=== PATIENT | male | born 1955 | race Caucasian/White ===

== ENCOUNTER 2019-06-29 09:15 | Outpatient (CLI) | payer MEDICARE, SELFPAY ==
[2019-06-29 09:55] LABS: Alanine Aminotransferase 39 U/L (4-50); Albumin Level 4.5 g/dL (3.5-5.1); Alkaline Phosphatase 72 U/L (38-126); Aspartate Amino Transferase 46 U/L (17-59); Bilirubin,Total 0.4 mg/dL (0.2-1.3); Blood Urea Nitrogen 18 mg/dL (9-20); Calcium 9.6 mg/dL (8.4-10.2); Carbon Dioxide 28 mmol/L (22-30); Chloride 101 mmol/L (98-107); Cholesterol 154 mg/dL (0-200); Estimated Glomerular Filt Rate > 60; Glucose 104 mg/dL (75-110); HDL Direct 28 mg/dL; Potassium 3.7 mmol/L (3.4-5.0); Sodium 138 mmol/L (137-145); Triglycerides 133 mg/dL (<150)
[2019-06-29 10:06] LABS: LDL Cholesterol Direct 108 mg/dL
[2019-06-29 10:31] LABS: MALB Creatinine Ratio < 10.2 mg/g (0-30); Microalbumin Urine Random < 6.0 mg/L (0-16.7)
== END 2019-06-29 09:16 | disposition home or self-care (01) ==
PROVIDERS: PCP Internal Medicine; Visit Provider Internal Medicine
DX: E11.9 Type 2 diabetes mellitus without complications (principal); Z51.81 Encounter for therapeutic drug level monitoring; I10 Essential (primary) hypertension; E78.5 Hyperlipidemia, unspecified
CPT/HCPCS: 36415; 80053; 80061; 82043; 83036

== ENCOUNTER 2019-11-23 08:38 | Outpatient (CLI) | payer MEDICARE, SELFPAY ==
[2019-11-23 09:30] LABS: Hemoglobin A1C 6.8 % (<5.7)
[2019-11-23 09:31] LABS: Alanine Aminotransferase 34 U/L (4-50); Albumin Level 4.4 g/dL (3.5-5.1); Alkaline Phosphatase 69 U/L (38-126); Anion Gap 7 mmol/L (8-16); Aspartate Amino Transferase 34 U/L (17-59); Bilirubin,Total 0.7 mg/dL (0.2-1.3); Blood Urea Nitrogen 17 mg/dL (9-20); Calcium 9.9 mg/dL (8.4-10.2); Carbon Dioxide 27 mmol/L (22-30); Chloride 102 mmol/L (98-107); Cholesterol 142 mg/dL (0-200); Estimated Glomerular Filt Rate > 60; Glucose 104 mg/dL (75-110); HDL Direct 33 mg/dL; Potassium 3.9 mmol/L (3.4-5.0); Sodium 136 mmol/L (137-145); Triglycerides 181 mg/dL (<150)
[2019-11-23 09:42] LABS: LDL Cholesterol Direct 86 mg/dL
[2019-11-23 09:43] LABS: Creatinine Urine 46.5 mg/dL
[2019-11-23 09:54] LABS: MALB Creatinine Ratio < 12.9 mg/g (0-30); Microalbumin Urine Random < 6.0 mg/L (0-16.7)
[2019-11-23 10:01] LABS: Prostate Specific Antigen 0.8 ng/mL (< OR = 4.0)
== END 2019-11-23 08:39 | disposition home or self-care (01) ==
LOC: ANHLAB 08:41
PROVIDERS: PCP Internal Medicine; Visit Provider Nurse Practitioner
DX: E11.9 Type 2 diabetes mellitus without complications (principal); Z12.5 Encounter for screening for malignant neoplasm of prostate; E78.2 Mixed hyperlipidemia
CPT/HCPCS: 36415; 80053; 80061; 82043; 83036; 84153; G0103

== ENCOUNTER 2020-01-03 00:37 | Outpatient (CLI) | payer MEDICARE, SELFPAY ==
[2020-01-03 19:58] LABS: SARS-CoV-2 RNA PCR Negative
== END 2020-01-03 00:38 | disposition home or self-care (01) ==
LOC: ANHCOVIDDT 00:37
PROVIDERS: PCP Internal Medicine; Visit Provider Internal Medicine Gastroenterology
DX: Z01.812 Encounter for preprocedural laboratory examination (principal); Z20.828 Contact with and (suspected) exposure to other viral communicable diseases
CPT/HCPCS: 87635; C9803; U0003

== ENCOUNTER 2020-01-05 02:12 | Day surgery (SDC) | payer MEDICARE, SELFPAY ==
[2019-12-31 09:36] VITALS: BMI 33.4
[2020-01-05 12:38] VITALS: BP 135/75; PULSE 86; RESP 18; TEMP 37.1; O2SAT 97; BMI 31.6
--- NOTE | 2020-01-05 12:49 | WPDANESEPPF ---
Anes - Initial Pre Proc Eval Procedure: Operation Date: 01/05/20 14:30 Proposed Procedures p Screening Colonoscopy - Vicente Rodrigues MD Date/Time: 01/05/20 12:49 Surgeon: Vicente Rodrigues MD Pre Op Diagnosis: Neoplasm Screening Patient Data Age: 64 Gender: M Height: 6 ft 1 in Weight: 109 kg Last Vital Signs Temp 37.1 C 01/05/20 12:38 Pulse 86 01/05/20 12:38 Resp 18 01/05/20 12:38 BP 135/75 01/05/20 12:38 Pulse Ox 97 01/05/20 12:38 Allergies Allergy/AdvReac Type Severity Reaction Status Date / Time No Known Allergies Allergy Mild Verified 01/05/20 12:37 Home Medications Medication Instructions Recorded Confirmed Type bupropion HCl 200 mg tablet,12 hr 200 mg PO BID 03/01/19 12/31/19 History sustained-release furosemide 40 mg tablet 40 mg PO QAM 03/01/19 12/31/19 History losartan 50 mg tablet 50 mg PO DAILY 03/01/19 12/31/19 History montelukast 10 mg tablet 10 mg PO DAILY 03/01/19 12/31/19 History blood-glucose meter #1 each 04/12/19 11/29/19 Rx famotidine 20 mg tablet 20 mg PO BID #180 tablet 07/01/19 12/31/19 Rx glipizide 10 mg tablet 10 mg PO BID #180 tablet 07/01/19 12/31/19 Rx metformin 1,000 mg tablet 1,000 mg PO BID #180 tablet 07/01/19 12/31/19 Rx fexofenadine-pseudoephedrine ER 1 tablet PO DAILY #30 tablet 07/22/19 12/31/19 Rx 180 mg-240 mg tablet,ext.release 24 hr blood sugar diagnostic See Rx Instructions .ROUTE 10/18/19 11/29/19 Rx .COMPLEX #100 strip fluticasone propionate 50 See Rx Instructions .ROUTE 10/18/19 12/31/19 Rx mcg/actuation nasal .COMPLEX #16 gram spray,suspension peg 3350-electrolytes 236 240 ml PO Q10M #4000 ml 11/29/19 Rx gram-22.74 gram-6.74 gram-5.86 gram solution tamsulosin 0.4 mg capsule 0.4 mg PO DAILY #30 cap 11/29/19 12/31/19 Rx dapagliflozin 10 mg tablet 10 mg PO QAM #90 tablet 12/13/19 12/31/19 Rx pravastatin 80 mg tablet 80 mg PO DAILY #90 tablet 12/13/19 12/31/19 Rx cetirizine [Zyrtec] 10 mg PO DAILY 12/31/19 12/31/19 History tzjgehymymui-bmo-qinw-FA-vit K 1 tablet PO DAILY 12/31/19 12/31/19 History [Adults Multivitamin] naproxen-diphenhydramine [Aleve PM] 1 tablet PO HS 12/31/19 12/31/19 History omega 0-vll-iaq-fish oil [Fish Oil] 3 cap PO BID 12/31/19 12/31/19 History Patient hx anesthesia problems: none Family hx anesthesia problems: none PMFSH Past Medical History Medical History Essential (primary) hypertension GERD (gastroesophageal reflux disease) Mixed hyperlipidemia ZAKIA (obstructive sleep apnea) Type II diabetes mellitus Surgical History Surgical History H/O cervical spine surgery H/O laminectomy L3-4 Family History Family History Sibling Family history of suicide Social History Social History Smoking packs per day: 1 Smoking cigarettes per day: 20.0 Years smoked: 41 Smoking pack-years: 41.00 Smoking status: Current every day smoker Tobacco type: cigarettes Second hand tobacco smoke exposure: Yes Smoking end date: 03/03/16 Alcohol intake: current Alcohol use details: MAY HAVE 1 OR 2 DRINKS PER MONTH Substance use: never Substance use type: does not use Spiritual care concerns: No Anes - Eval Final PreProcedure Day of Procedure 01/05/20 12:49 Patient weight: obese Heart: regular rate and rhythm Lungs: decreased breath sounds Airway: Mallampati scale class II Neurological: alert and oriented ASA classification: III Emergent: no Anesthetic plan: proceed Anesthesia type and monitoring: general GIVS and standard monitoring Informed Consent: The patient's anesthetic plan and its attendant risks and benefits were discussed with the patient/family/POA. Questions were solicited and answers provided t
[2020-01-05] MEDS: LACTATED RINGERS 1,000 ML 150 ML IV CONT (12:56)
[2020-01-05 12:58] LABS: Glucose Point of Care 103 (65-105)
--- NOTE | 2020-01-05 13:34 | PM.HPGS ---
History of Present Illness History of Present Illness Consent: Risks, benefits, and alternatives have been discussed and questions answered. Patient agrees to proceed with procedure. Chief complaint: Neoplasm Screening Narrative: Aleksandr Yepez Sr. is a 64 year old male here for screening colonoscopy, last one 11 years ago. Review of Systems Constitutional: Constitutional: Denies headache(s) and Denies weakness Eyes: Eyes: Denies blurry vision ENT: Reports Normal hearing present, Denies headache(s) and Denies neck pain Cardiovascular: Cardiovascular: Denies chest pain and Denies dyspnea Respiratory: Respiratory: Denies dyspnea Gastrointestinal: Gastrointestinal: Reports no additional gastrointestinal complaints Genitourinary: Genitourinary: Denies dysuria Musculoskeletal: Musculoskeletal: Denies neck pain Integumentary/Breasts: Skin/Breast: Denies dry skin Neurologic: Reports Normal hearing present, Denies headache(s) and Denies weakness Psychiatric: Psychiatric: Denies anxiety Endocrine: Endocrine: Denies change in body appearance Hematologic/Lymphatic: Hematologic/Lymphatic: Denies easy bleeding Allergic/Immunologic: Allergic/Immunologic: Denies urticaria PMFSH Past Medical History Medical History Essential (primary) hypertension GERD (gastroesophageal reflux disease) Mixed hyperlipidemia ZAKIA (obstructive sleep apnea) Type II diabetes mellitus Surgical History Surgical History H/O cervical spine surgery H/O laminectomy L3-4 Family History Family History Sibling Family history of suicide Social History Social History Smoking packs per day: 1 Smoking cigarettes per day: 20.0 Years smoked: 41 Smoking pack-years: 41.00 Smoking status: Current every day smoker Tobacco type: cigarettes Second hand tobacco smoke exposure: Yes Smoking end date: 03/03/16 Alcohol intake: current Alcohol use details: MAY HAVE 1 OR 2 DRINKS PER MONTH Substance use: never Substance use type: does not use Spiritual care concerns: No Meds Home Medications and Allergies Home Medications Medication Instructions Recorded Confirmed Type bupropion HCl 200 mg tablet,12 hr 200 mg PO BID 03/01/19 01/05/20 History sustained-release furosemide 40 mg tablet 40 mg PO QAM 03/01/19 01/05/20 History losartan 50 mg tablet 50 mg PO DAILY 03/01/19 01/05/20 History montelukast 10 mg tablet 10 mg PO DAILY 03/01/19 01/05/20 History blood-glucose meter #1 each 04/12/19 01/05/20 Rx famotidine 20 mg tablet 20 mg PO BID #180 tablet 07/01/19 01/05/20 Rx glipizide 10 mg tablet 10 mg PO BID #180 tablet 07/01/19 01/05/20 Rx metformin 1,000 mg tablet 1,000 mg PO BID #180 tablet 07/01/19 01/05/20 Rx fexofenadine-pseudoephedrine ER 1 tablet PO DAILY #30 tablet 07/22/19 01/05/20 Rx 180 mg-240 mg tablet,ext.release 24 hr blood sugar diagnostic See Rx Instructions .ROUTE 10/18/19 01/05/20 Rx .COMPLEX #100 strip fluticasone propionate 50 See Rx Instructions .ROUTE 10/18/19 01/05/20 Rx mcg/actuation nasal .COMPLEX #16 gram spray,suspension peg 3350-electrolytes 236 240 ml PO Q10M #4000 ml 11/29/19 01/05/20 Rx gram-22.74 gram-6.74 gram-5.86 gram solution tamsulosin 0.4 mg capsule 0.4 mg PO DAILY #30 cap 11/29/19 01/05/20 Rx dapagliflozin 10 mg tablet 10 mg PO QAM #90 tablet 12/13/19 01/05/20 Rx pravastatin 80 mg tablet 80 mg PO DAILY #90 tablet 12/13/19 01/05/20 Rx cetirizine [Zyrtec] 10 mg PO DAILY 12/31/19 01/05/20 History kiaiuwegknrk-zkr-rlom-FA-vit K 1 tablet PO DAILY 12/31/19 01/05/20 History [Adults Multivitamin] naproxen-diphenhydramine [Aleve PM] 1 tablet PO HS 12/31/19 01/05/20 History omega 8-bff-pdn-fish oil [Fish Oil] 3 cap PO BID 12/31/19
[2020-01-05 14:03] VITALS: BP 113/71; PULSE 80; RESP 23; O2SAT 96
[2020-01-05 14:13] VITALS: BP 128/81; PULSE 82; RESP 16; O2SAT 98
[2020-01-05 14:23] VITALS: BP 115/75; PULSE 76; RESP 19; O2SAT 100
== END 2020-01-05 14:31 | disposition home or self-care (01) ==
PROVIDERS: PCP Internal Medicine; Visit Provider Internal Medicine Gastroenterology
PROC: 0DJD8ZZ Inspection of Lower Intestinal Tract, Via Natural or Artificial Opening Endoscopic (ICD-10-PCS; CPT 45378; principal; 2020-01-05 14:30)
DX: Z12.11 Encounter for screening for malignant neoplasm of colon (principal); I10 Essential (primary) hypertension; E78.2 Mixed hyperlipidemia; E11.9 Type 2 diabetes mellitus without complications; K21.9 Gastro-esophageal reflux disease without esophagitis; Z79.84 Long term (current) use of oral hypoglycemic drugs; F17.210 Nicotine dependence, cigarettes, uncomplicated; E66.9 Obesity, unspecified; Z68.31 Body mass index [BMI] 31.0-31.9, adult
CPT/HCPCS: 45378; J2704; J7120

== ENCOUNTER 2020-05-22 07:23 | Outpatient (CLI) | payer MEDICARE, SELFPAY ==
[2020-05-22 07:47] LABS: Hemoglobin A1C 8.3 % (<5.7)
[2020-05-22 07:52] LABS: Alanine Aminotransferase 32 U/L (4-50); Albumin Level 4.2 g/dL (3.5-5.1); Alkaline Phosphatase 62 U/L (38-126); Anion Gap 8 mmol/L (8-16); Aspartate Amino Transferase 32 U/L (17-59); Bilirubin,Total 0.4 mg/dL (0.2-1.3); Blood Urea Nitrogen 15 mg/dL (9-20); Calcium 9.1 mg/dL (8.4-10.2); Carbon Dioxide 26 mmol/L (22-30); Chloride 104 mmol/L (98-107); Cholesterol 151 mg/dL (0-200); Estimated Glomerular Filt Rate > 60; Glucose 158 mg/dL (75-110); HDL Direct 36 mg/dL; Potassium 4.1 mmol/L (3.4-5.0); Sodium 138 mmol/L (137-145); Triglycerides 178 mg/dL (<150)
[2020-05-22 08:03] LABS: LDL Cholesterol Direct 91 mg/dL
[2020-05-22 10:44] LABS: Creatinine Urine 91.4 mg/dL
[2020-05-22 10:49] LABS: MALB Creatinine Ratio 8.5 mg/g (0-30); Microalbumin Urine Random 7.8 mg/L (0-16.7)
== END 2020-05-22 07:24 | disposition home or self-care (01) ==
PROVIDERS: PCP Internal Medicine; Visit Provider Internal Medicine
DX: E11.9 Type 2 diabetes mellitus without complications (principal); I10 Essential (primary) hypertension; E78.5 Hyperlipidemia, unspecified
CPT/HCPCS: 36415; 80053; 80061; 82043; 83036

== ENCOUNTER 2020-08-26 08:45 | Outpatient (CLI) | payer MEDICARE, SELFPAY ==
[2020-08-26 09:13] LABS: Alanine Aminotransferase 31 U/L (4-50); Albumin Level 4.5 g/dL (3.5-5.1); Alkaline Phosphatase 69 U/L (38-126); Anion Gap 10 mmol/L (8-16); Aspartate Amino Transferase 29 U/L (17-59); Bilirubin,Total 0.5 mg/dL (0.2-1.3); Blood Urea Nitrogen 18 mg/dL (9-20); Calcium 9.7 mg/dL (8.4-10.2); Carbon Dioxide 25 mmol/L (22-30); Chloride 101 mmol/L (98-107); Estimated Glomerular Filt Rate > 60; Glucose 154 mg/dL (75-110); Potassium 4.1 mmol/L (3.4-5.0); Sodium 136 mmol/L (137-145)
[2020-08-26 09:24] LABS: Hemoglobin A1C 7.3 % (<5.7)
== END 2020-08-26 08:46 | disposition home or self-care (01) ==
PROVIDERS: PCP Internal Medicine; Visit Provider Nurse Practitioner
DX: E11.9 Type 2 diabetes mellitus without complications (principal)
CPT/HCPCS: 36415; 80053; 83036

== ENCOUNTER 2020-10-31 09:42 | Outpatient (CLI) | payer MEDICARE, SELFPAY ==
--- NOTE | ~2020-10-31 | CT_ITS ---
EXAMINATION: CT lung screening DATE: 10/31/2020 09:57 INDICATION: Personal history of tobacco dependence, current smoker with 42 pack year history TECHNIQUE: Computed tomography (CT) of the chest was performed without intravenous contrast. The dose -length product (DLP) was 297.34 mGy-cm. Automated exposure control and iterative reconstruction tech [employer] were employed. COMPARISON: None FINDINGS: There is mild emphysema. No pulmonary nodules are identified. The lungs are free of acute o pacities. There is no pleural effusion or pneumothorax. Fissural lymph nodes are noted on the right. No pathologically enlarged thoracic lymph nodes are identified. The heart size is normal. Calcified c oronary artery atherosclerosis is noted. There are partially imaged changes of posterior thoracolumba r fusion. Moderate thoracic spondylosis is noted. IMPRESSION: 1. Lung-RADS category 1: Negative. Continue annual screening with noncontrast low-dose chest CT in 12 months. Reviewed, dictated and finalized at location A. IMPRESSION: 1. Lung-RADS category 1: Negative. Continue annual screening with noncontrast l ow-dose chest CT in 12 months.
== END 2020-10-31 09:43 | disposition home or self-care (01) ==
PROVIDERS: PCP Internal Medicine; Visit Provider Internal Medicine
DX: Z12.2 Encounter for screening for malignant neoplasm of respiratory organs (principal); Z87.891 Personal history of nicotine dependence
CPT/HCPCS: 71271

== ENCOUNTER 2020-12-10 19:03 | Emergency (ER) | payer MEDICARE, SELFPAY ==
--- NOTE | ~2020-12-10 | XR_ITS ---
EXAMINATION: XR chest 1V portable DATE: 12/10/2020 19:54 INDICATION: Cough, fever and shortness of breath TECHNIQUE: frontal view of the chest was obtained. COMPARISON: CT dated 10/31/2020 FINDINGS: New mild patchy airspace opacities in the left mid and bilateral lower lung zones. No pleural effusio n or pneumothorax. The cardiomediastinal silhouette is normal. Likely wire and screws project over th e right side of the C7 vertebral body potentially for fixation across the lamina. Thoracolumbar poste rior spinal fusion with incompletely visualized bilateral vertical shannon and screw fixation. IMPRESSION: 1. Patchy opacities in the left mid and bilateral lower lung zones which could represent pneumonia or pulmonary edema. Reviewed, dictated and finalized at location A.
[2020-12-10 19:10] VITALS: BP 158/69; PULSE 106; RESP 18; TEMP 37; O2SAT 98
--- NOTE | 2020-12-10 20:25 | ED.GENADULT ---
HPI - General Adult General Chief complaint: Fever Stated complaint: fever, chills, achey, cough Time Seen by Provider: 12/10/20 19:31 History of Present Illness HPI narrative: Patient is a 65-year-old gentleman who presents the emergency department with chief complaint of fever body aches and chills. Patient reports that he started having symptoms in the last 24 hours reports that he was at a family gathering and then started having a cough with this. Patient states he is taken some Tylenol and that helped a little bit the patient reports he received the [employer] vaccine for COVID-19. Patient reports symptoms or not improved by anything nor they worsened by anything. Related Data Home Medications Medication Instructions Recorded Confirmed gqcjrtcvvpib-bpu-jxie-FA-vit K 1 tablet PO DAILY 12/31/19 10/26/20 [Adults Multivitamin] naproxen-diphenhydramine [Aleve PM] 1 tablet PO HS 12/31/19 10/26/20 omega 3-csb-zbr-fish oil [Fish Oil] 3 cap PO BID 12/31/19 10/26/20 simethicone 125 mg capsule 125 mg PO DAILY PRN 10/26/20 10/26/20 Allergies Allergy/AdvReac Type Severity Reaction Status Date / Time No Known Allergies Allergy Mild Verified 12/10/20 19:39 Review of Systems Review of Systems: A 10 system review of systems was completed on the patient and is negative except for what is stated in the HPI. Nursing and ancillary documentation was reviewed. [facility] Past Medical History Medical History Colon cancer screening Essential (primary) hypertension GERD (gastroesophageal reflux disease) Mixed hyperlipidemia ZAKIA (obstructive sleep apnea) Type II diabetes mellitus Surgical History Surgical History H/O cervical spine surgery H/O laminectomy L3-4 Family History Family History Sibling Family history of suicide Social History Social History Smoking packs per day: 1 Smoking cigarettes per day: 20.0 Years smoked: 42 Smoking pack-years: 42.00 Smoking status: Current every day smoker Tobacco type: cigarettes Second hand tobacco smoke exposure: No Alcohol intake: current Alcohol use details: Social Substance use: never Substance use type: does not use Spiritual care concerns: No Exam Narrative: GENERAL: Well-appearing, well-nourished, and in no acute distress. HEAD: Normocephalic, atraumatic. EYES: PERRLA and EOMI. ENT: Nares clear, no rhinorrhea or epistaxis. Mucous membranes moist. NECK: Supple. CHEST: Clear to auscultation. No respiratory distress. HEART: Regular rate and rhythm. No murmur heard. Normal peripheral pulses. ABDOMEN: Soft, nontender, nondistended, normal active bowel sounds. EXTREMITIES: Normal range of motion. No edema. SKIN: Warm, dry, no rash. NEURO: No focal deficits. Alert and oriented x3. PSYCH: Normal mood and affect. Course Vital Signs Vital signs: Vital Signs Temperature 37.0 C 12/10/20 19:10 Pulse Rate 106 H 12/10/20 19:10 Respiratory Rate 18 12/10/20 19:10 Blood Pressure 158/69 H 12/10/20 19:10 Pulse Oximetry 98 12/10/20 19:10 Temperature 37.0 C 12/10/20 19:10 Pulse Rate 106 H 12/10/20 19:10 Respiratory Rate 18 12/10/20 19:10 Blood Pressure 158/69 H 12/10/20 19:10 Pulse Oximetry 98 12/10/20 19:10 Medical Decision Making Vital Signs Vital Signs: Vital Signs Temperature 37.0 C 12/10/20 19:10 Pulse Rate 106 H 12/10/20 19:10 Respiratory Rate 18 12/10/20 19:10 Blood Pressure 158/69 H 12/10/20 19:10 Pulse Oximetry 98 12/10/20 19:10 Temperature 37.0 C 12/10/20 19:10 Pulse Rate 106 H 12/10/20 19:10 Respiratory Rate 18 12/10/20 19:10 Blood Pressure 158/69 H 12/10/20 19:10 Pulse Oximetry 98 12/10/20 19:10 Dis
[2020-12-10 20:42] VITALS: BP 133/67; PULSE 104; RESP 20; O2SAT 94
[2020-12-10] MEDS: CEFDINIR 300 MG CAPSULE PO (20:44)
[2020-12-10] MEDS: AZITHROMYCIN 250 MG TABLET 500 MG PO (20:44)
[2020-12-11 20:20] LABS: SARS-CoV-2 RNA PCR Negative
== END 2020-12-10 20:40 | disposition home or self-care (01) ==
PROVIDERS: Emergency Provider Emergency Medicine; PCP Internal Medicine
DX: J18.9 Pneumonia, unspecified organism (principal); Z20.822 Contact with and (suspected) exposure to COVID-19; I10 Essential (primary) hypertension; K21.9 Gastro-esophageal reflux disease without esophagitis; E78.2 Mixed hyperlipidemia; G47.33 Obstructive sleep apnea (adult) (pediatric); E11.9 Type 2 diabetes mellitus without complications; F17.210 Nicotine dependence, cigarettes, uncomplicated; Z79.84 Long term (current) use of oral hypoglycemic drugs
CPT/HCPCS: 71045; 87804; 99283; A9270; C9803; U0003; U0005

== ENCOUNTER 2020-12-23 09:55 | Outpatient (CLI) | payer MEDICARE, SELFPAY ==
[2020-12-23 11:27] LABS: Hemoglobin A1C 7.4 % (<5.7)
[2020-12-23 11:33] LABS: Alanine Aminotransferase 35 U/L (4-50); Albumin Level 4.1 g/dL (3.5-5.1); Alkaline Phosphatase 65 U/L (38-126); Anion Gap 9 mmol/L (8-16); Aspartate Amino Transferase 31 U/L (17-59); Bilirubin,Total 0.6 mg/dL (0.2-1.3); Blood Urea Nitrogen 20 mg/dL (9-20); Calcium 9.6 mg/dL (8.4-10.2); Carbon Dioxide 25 mmol/L (22-30); Chloride 105 mmol/L (98-107); Cholesterol 134 mg/dL (0-200); Estimated Glomerular Filt Rate > 60; Glucose 155 mg/dL (65-110); HDL Direct 34 mg/dL; Potassium 4.4 mmol/L (3.4-5.0); Sodium 139 mmol/L (137-145); Triglycerides 110 mg/dL (<150)
[2020-12-23 11:44] LABS: LDL Cholesterol Direct 79 mg/dL
== END 2020-12-23 09:56 | disposition home or self-care (01) ==
LOC: ANHLAB 09:56
PROVIDERS: PCP Internal Medicine; Visit Provider Nurse Practitioner
DX: E11.9 Type 2 diabetes mellitus without complications (principal)
CPT/HCPCS: 36415; 80053; 80061; 83036

== ENCOUNTER 2021-08-04 09:30 | Outpatient (CLI) | payer MEDICARE, SELFPAY ==
[2021-08-04 10:02] LABS: Alanine Aminotransferase 32 U/L (6-50); Albumin Level 4.3 g/dL (3.5-5.1); Alkaline Phosphatase 51 U/L (38-126); Anion Gap 8 mmol/L (8-16); Aspartate Amino Transferase 45 U/L (17-59); Bilirubin,Total 0.9 mg/dL (0.2-1.3); Blood Urea Nitrogen 15 mg/dL (9-20); Calcium 8.4 mg/dL (8.4-10.2); Carbon Dioxide 21 mmol/L (22-30); Chloride 106 mmol/L (98-107); Cholesterol 137 mg/dL (0-200); Estimated Glomerular Filt Rate > 60; Glucose 171 mg/dL (65-110); HDL Direct 33 mg/dL; Potassium 4.6 mmol/L (3.4-5.0); Sodium 135 mmol/L (137-145); Triglycerides 144 mg/dL (<150)
[2021-08-04 10:03] LABS: Hemoglobin A1C 7.6 % (<5.7)
[2021-08-04 10:12] LABS: LDL Cholesterol Direct 79 mg/dL
[2021-08-04 10:31] LABS: Prostate Specific Antigen 0.9 ng/mL (< OR = 4.0)
== END 2021-08-04 09:31 | disposition home or self-care (01) ==
LOC: ANHLAB 09:31
PROVIDERS: PCP Internal Medicine; Visit Provider Nurse Practitioner
DX: Z12.5 Encounter for screening for malignant neoplasm of prostate (principal); E11.9 Type 2 diabetes mellitus without complications; E78.5 Hyperlipidemia, unspecified
CPT/HCPCS: 36415; 80053; 80061; 83036; 84153; G0103

== ENCOUNTER 2022-03-06 10:23 | Outpatient (CLI) | payer MEDICARE, SELFPAY ==
[2022-03-06 11:14] LABS: Hemoglobin A1C 8.8 % (<5.7)
[2022-03-06 11:15] LABS: Alanine Aminotransferase 33 U/L (6-50); Albumin Level 4.4 g/dL (3.5-5.1); Alkaline Phosphatase 90 U/L (38-126); Anion Gap 6 mmol/L (8-16); Aspartate Amino Transferase 27 U/L (17-59); Bilirubin,Total 0.5 mg/dL (0.2-1.3); Blood Urea Nitrogen 15 mg/dL (9-20); Carbon Dioxide 29 mmol/L (22-30); Chloride 97 mmol/L (98-107); Estimated Glomerular Filt Rate > 60; Glucose 215 mg/dL (65-110); Potassium 4.1 mmol/L (3.4-5.0); Sodium 132 mmol/L (137-145)
[2022-03-06 11:42] LABS: Creatinine Urine 119.9 mg/dL
[2022-03-06 11:48] LABS: MALB Creatinine Ratio 8.8 mg/g (0-30); Microalbumin Urine Random 10.6 mg/L (0-16.7)
== END 2022-03-06 10:24 | disposition home or self-care (01) ==
PROVIDERS: PCP Internal Medicine; Visit Provider Nurse Practitioner
DX: E11.9 Type 2 diabetes mellitus without complications (principal)
CPT/HCPCS: 36415; 80053; 82043; 83036

== ENCOUNTER 2022-05-14 11:00 | Outpatient (CLI) | payer MEDICARE, SELFPAY ==
--- NOTE | ~2022-05-14 | CT_ITS ---
EXAMINATION: CT lung screening DATE: 05/14/2022 11:17 INDICATION: Lung cancer screening TECHNIQUE: Computed tomography (CT) of the chest was performed without intravenous contrast. Addition al 3D reconstructions utilizing coronal maximum intensity projection (MIP) were performed. Automated exposure control and iterative reconstruction technique were employed. The dose-length product was 26 0.04 mGy-cm. COMPARISON: 10/31/2020 FINDINGS: Small calcified right middle lobe nodule consistent with old granulomatous disease. There are a few s mall flat lenticular or triangular likely intrafissural lymph node along the right major and minor fi ssures, largest measuring 5 mm in maximal diameter. No significant change in scattered subtle groundg lass opacities in the bilateral lower lungs most likely either atelectasis or chronic interstitial jacinto ng disease. No septal line thickening to suggest pulmonary edema. No other pulmonary nodules or pleur al effusion. Heart size is normal. Atherosclerotic coronary artery calcific lesions. No pericardial e ffusion. Thoracic aorta is normal in caliber. No pathologically enlarged thoracic lymphadenopathy. Vi sualized upper abdomen is unremarkable. There are bridging osteophytes at multiple levels in the thor acic spine consistent with diffuse idiopathic skeletal hyperostosis (DISH). Partially visualized inst rumented posterior spinal fusion with bilateral vertical shannon and pedicle screw fixation beginning at T10 and extending below the inferior margin of the peodf-nc-rpam, at least to the level of L3 on the seamer topogram. IMPRESSION: 1. Lung-RADS category 2: Benign appearance or behavior. Continue annual screening with noncontrast lo w-dose chest CT in 12 months. Reviewed, dictated and finalized at location L. IMPRESSION: 1. Lung-RADS category 2: Benign appearance or behavior. Continue annual screeni ng with noncontrast low-dose chest CT in 12 months.
== END 2022-05-14 11:01 | disposition home or self-care (01) ==
LOC: ANHIMG 11:02
PROVIDERS: PCP Internal Medicine; Visit Provider Physician Assistant
DX: Z12.2 Encounter for screening for malignant neoplasm of respiratory organs (principal); Z87.891 Personal history of nicotine dependence
CPT/HCPCS: 71271

== ENCOUNTER 2022-06-06 11:00 | Outpatient (RCR) | payer MEDICARE, SELFPAY ==
[2022-06-06 11:13] VITALS: BMI 32.5
[2022-06-06 13:24] VITALS: BMI 32.5
== END 2022-08-12 08:55 | disposition home or self-care (01) ==
LOC: ANHDMC 11:00
PROVIDERS: PCP Internal Medicine; Visit Provider Nurse Practitioner Family
DX: E11.65 Type 2 diabetes mellitus with hyperglycemia (principal); Z71.89 Other specified counseling; Z71.3 Dietary counseling and surveillance
CPT/HCPCS: 97802; G0108

== ENCOUNTER 2022-06-07 08:15 | Outpatient (CLI) | payer MEDICARE, SELFPAY ==
[2022-06-07 08:58] LABS: Alanine Aminotransferase 37 U/L (6-50); Albumin Level 4.7 g/dL (3.5-5.1); Alkaline Phosphatase 54 U/L (38-126); Anion Gap 8 mmol/L (8-16); Aspartate Amino Transferase 35 U/L (17-59); Bilirubin,Total 0.8 mg/dL (0.2-1.3); Blood Urea Nitrogen 18 mg/dL (9-20); Calcium 9.2 mg/dL (8.4-10.2); Carbon Dioxide 29 mmol/L (22-30); Chloride 100 mmol/L (98-107); Cholesterol 127 mg/dL (0-200); Estimated Glomerular Filt Rate > 60; Glucose 138 mg/dL (65-110); HDL Direct 30 mg/dL; Potassium 4.5 mmol/L (3.4-5.0); Sodium 137 mmol/L (137-145); Triglycerides 114 mg/dL (<150)
[2022-06-07 09:00] LABS: Hemoglobin A1C 7.9 % (<5.7)
[2022-06-07 09:07] LABS: LDL Cholesterol Direct 73 mg/dL
[2022-06-07 10:37] LABS: Creatinine Urine 55.9 mg/dL
[2022-06-07 10:43] LABS: MALB Creatinine Ratio < 10.7 mg/g (0-30); Microalbumin Urine Random < 6.0 mg/L (0-16.7)
== END 2022-06-07 08:16 | disposition home or self-care (01) ==
PROVIDERS: PCP Internal Medicine; Visit Provider Nurse Practitioner Family
DX: Z51.81 Encounter for therapeutic drug level monitoring (principal); I10 Essential (primary) hypertension; E11.9 Type 2 diabetes mellitus without complications
CPT/HCPCS: 36415; 80053; 80061; 82043; 83036

== ENCOUNTER 2022-10-11 08:25 | Outpatient (CLI) | payer MEDICARE, SELFPAY ==
[2022-10-11 10:34] LABS: Hemoglobin A1C 5.6 % (<5.7)
== END 2022-10-11 08:26 | disposition home or self-care (01) ==
PROVIDERS: PCP Family Medicine; Visit Provider Internal Medicine
DX: E11.9 Type 2 diabetes mellitus without complications (principal)
CPT/HCPCS: 36415; 83036

== ENCOUNTER 2024-08-26 09:07 | Outpatient (CLI) | payer MEDICARE, SELFPAY ==
[2024-08-26 09:39] LABS: Basophils Percent Auto 0.6 % (0.2-1.2); Eosinophils Absolute Auto 0.2 K/mm3 (0-0.3); Eosinophils Percent Auto 3.3 % (0-4.4); Hematocrit 41.7 % (42.0-52.0); Immature Granulocyte Absolute 0.02 K/mm3 (0.00-0.031); Immature Granulocyte Percent A 0.3 % (0-0.5); Lymphocytes Absolute Auto 2.83 K/mm3 (0.9-3.2); Mean Corpuscular HGB Conc 33.6 g/dl (32-36); Mean Corpuscular Hemoglobin 33.6 pg (26-34); Mean Platelet Volume 10.4 fl (7.4-10.4); Monocytes Absolute Auto 0.7 K/mm3 (0.1-0.6); Monocytes Percent Auto 9.7 % (2.6-8.5); Neutrophils Absolute Auto 3.4 K/mm3 (1.3-6.7); Neutrophils Percent Auto 47.1 % (45.5-73.1); Platelet Count Result 198 k/mm3 (150-375); Red Blood Count 4.17 M/mm3 (4.6-6.20); Red Cell Distribution Width 12.8 % (11.5-14.5); White Blood Count 7.3 K/mm3 (4.5-10.0)
[2024-08-26 09:52] LABS: Alanine Aminotransferase 30 U/L (6-50); Albumin Level 4.2 g/dL (3.5-5.1); Alkaline Phosphatase 56 U/L (38-126); Anion Gap 11 mmol/L (4-12); Aspartate Amino Transferase 31 U/L (17-59); Bilirubin,Total 0.4 mg/dL (0.2-1.3); Blood Urea Nitrogen 19 mg/dL (9-20); Calcium 9.2 mg/dL (8.4-10.2); Carbon Dioxide 23 mmol/L (22-30); Chloride 103 mmol/L (98-107); Cholesterol 126 mg/dL (0-200); Estimated Glomerular Filt Rate > 60; Glucose 119 mg/dL (65-110); HDL Direct 33 mg/dL; Potassium 4.1 mmol/L (3.4-5.0); Sodium 137 mmol/L (137-145); Total Protein 6.9 g/dL (6.3-8.2); Triglycerides 139 mg/dL (<150)
[2024-08-26 10:02] LABS: LDL Cholesterol Direct 64 mg/dL
[2024-08-26 10:06] LABS: Creatinine Urine 221.5 mg/dL
[2024-08-26 10:11] LABS: MALB Creatinine Ratio 9.3 mg/g (0-30); Microalbumin Urine Random 20.7 mg/L (0-16.7)
[2024-08-26 10:34] LABS: Vitamin D 25 Hydroxy 47.7 ng/mL
[2024-08-26 11:00] LABS: Hemoglobin A1C 6.5 % (<5.7)
== END 2024-08-26 09:08 | disposition home or self-care (01) ==
PROVIDERS: PCP Internal Medicine; Visit Provider Internal Medicine
DX: E11.9 Type 2 diabetes mellitus without complications (principal); E78.5 Hyperlipidemia, unspecified; Z79.891 Long term (current) use of opiate analgesic
CPT/HCPCS: 36415; 80053; 80061; 82043; 82306; 83036; 85025

== ENCOUNTER 2024-10-26 16:10 | Outpatient (CLI) | payer MEDICARE, SELFPAY ==
--- NOTE | ~2024-10-26 | US_ITS ---
EXAMINATION: US carotid duplex BI DATE: 10/26/2024 16:46 INDICATION: Carotid stenosis TECHNIQUE: Grayscale, color Doppler, and pulsed Doppler images of the cervical carotid arteries were obtained. The degree of vessel stenosis is placed in one of the following categories: normal, <50%, 50-69%, >=70% but less than near- occlusion, near-occlusion, or total occlusion. Note that percent stenosis relative to normal distal artery lumen diameter is indirectly measured from velocity measurements as described by Leonel, et al. Radiology 2003; 229:340-346. Notes: Normal: Peak systolic velocity <125 centimeters/sec and no plaque <50%. Peak systolic velocity <125 (EDV <40; ICA/CCA PSV ratio <2.0; used these factors only a tandem lesions or low cardiac output or contralateral disease) 50-69 %: PSV 125-230 (EDV 40-100; ratio 2-4) >= 70% but less than near occlusion: PSV greater than 230 (EDV > 100; ratio> 4.0) Near Occlusion: PSV that is variable; markedly narrowed lumen Occlusion: Absent flow on color/spectral Doppler and no lumen on hernandez scale. COMPARISON: None. FINDINGS: RIGHT: The right common carotid artery (CCA) peak systolic velocity (PSV) is 94 cm/s. The right internal carotid artery (ICA) PSV is 82 cm/s. The right ICA end- diastolic velocity (EDV) is 28 cm/s. The right ICA/CCA PSV ratio is 0.9. The external carotid artery (ECA) PSV is 147 cm/s. There is antegrade flow in the right vertebral artery. LEFT: The left CCA PSV is 117 cm/s. The left ICA PSV is 98 cm/s. The left ICA EDV is 18 cm/s. The left ICA/CCA PSV ratio is 0.8. The ECA PSV is 134 cm/s. There is antegrade flow in the left vertebral artery. IMPRESSION: 1. Less than 50% stenosis in the right internal carotid artery by sonographic criteria. 2. Less than 50% stenosis in the left internal carotid artery by sonographic criteria. Reviewed, dictated and finalized at location O. IMPRESSION: 1. Less than 50% stenosis in the right internal carotid artery by sonographic jan urias. 2. Less than 50% stenosis in the left internal carotid artery by sonographic justina campos.
--- OUTSIDE RECORDS SUMMARY | 2024-10-26 16:14 | XMS_ITS | Encounter Summary ---
Author Organization [employer] [facility] Address [address] [place] [address] Care Team Providers Care Registered Nurse Cardiac Telemetry Name Role Phone Unavailable Primary Care Provider Unavailabl e Encounter Details Date Type Department Care Team (Latest Contact Info) Description 05/21/2001 Outpatient [facility] [address] [place] [address] & [place] [address] Amirah Oliver MD NO ADDRESS ON FILE LUMBAGO (Primary Dx) Social History Tobacco Use Types Packs/Day Years Used Date Smoking Tobacco: Never Assessed Sex and Gender Information Value Date Recorded Sex Assigned at Not on file 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
--- OUTSIDE RECORDS SUMMARY | 2024-10-26 16:14 | XMS_ITS | Encounter Summary ---
Author Organization [employer] [facility] Address 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
--- OUTSIDE RECORDS SUMMARY | 2024-10-26 16:14 | XMS_ITS | Encounter Summary ---
Author Organization [employer] [facility] Address 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
--- OUTSIDE RECORDS SUMMARY | 2024-10-26 16:15 | XMS_ITS | Encounter Summary ---
Author Organization [employer] [facility] Address 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
--- OUTSIDE RECORDS SUMMARY | 2024-10-26 16:15 | XMS_ITS | Encounter Summary ---
Author Organization [employer] [facility] Address 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
--- OUTSIDE RECORDS SUMMARY | 2024-10-26 16:15 | XMS_ITS | Encounter Summary ---
Author Organization [employer] [facility] Address 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
--- OUTSIDE RECORDS SUMMARY | 2024-10-26 16:15 | XMS_ITS | Encounter Summary ---
Author Organization [employer] [facility] Address 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
--- OUTSIDE RECORDS SUMMARY | 2024-10-26 16:15 | XMS_ITS | Encounter Summary ---
Author Organization [employer] [facility] Address 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
--- OUTSIDE RECORDS SUMMARY | 2024-10-26 16:15 | XMS_ITS | Encounter Summary ---
Author Organization [employer] [facility] Address 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
--- OUTSIDE RECORDS SUMMARY | 2024-10-26 16:15 | XMS_ITS | Clinical Summary ---
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
--- OUTSIDE RECORDS SUMMARY | 2024-10-26 16:15 | XMS_ITS | Clinical Summary ---
Author Organization [facility] Address [address] [place] [address] Care Team Providers Care Salon/Spa Manager Name Role Phone Shivani Wyatt MD Primary Care Provider [phone] Source Comments [facility],non-owned Affiliates and Associated Physician Practices is amultiple site organization consisting of ambulatory clinics and hospital sitesin [place], [place], [place] and [place]. This disclosure is being madepursuant to the Care Everywhere program and may not contain all information available regarding this patient. Last updated 17.[facility] Allergies No known active allergies Medications * Be aware that medications may not be up to date on this document. Alwaysverify current medications with the patient. baclofen (LIORESAL) 10 MG tablet Take 10 mg by mouth 4 times daily 1 02/10/2015 Active buPROPion SR 12hr (WELLBUTRIN SR) 200 MG tablet Take 200 mg by mouth 2 times daily 3 03/09/2015 Active DULoxetine (CYMBALTA) 30 MG capsule Take 30 mg by mouth once daily 04/07/2015 Active fentaNYL (DURAGESIC) 100 MCG/HR patch Apply 1 Patch to skin every 3 days 03/15/2015 Active fluticasone propionate (FLONASE) 50 MCG/ACT nasal spray [place] 2 Sprays into each nostril at bedtime 3 03/20/2015 Active furosemide (LASIX) 40 MG tablet Take 40 mg by mouth once daily 2 03/20/2015 Active gabapentin (NEURONTIN) 600 MG tablet Take 600 mg by mouth 4 times daily 04/07/2015 Active lisinopril (PRINIVIL; ZESTRIL) 10 MG tablet Take 10 mg by mouth once daily 3 03/20/2015 Active lovastatin (MEVACOR) 40 MG tablet Take 40 mg by mouth at bedtime 3 03/20/2015 Active metFORMIN (GLUCOPHAGE) 1000 MG tablet Take 1,000 mg by mouth 2 times daily with morning and evening meal 04/05/2015 Active sennosides (SENOKOT) 8.6 MG tablet Take 8.6 mg by mouth at bedtime Active docusate sodium (COLACE) 50 MG capsule Take 50 mg by mouth once daily Active ranitidine (ZANTAC) 150 MG tablet Take 150 mg by mouth 2 times daily Active Fexofenadine-Ps eudoephedrine (MICHAEL-D 24 HOUR PO) Take 1 Tab by mouth at bedtime Active [place]-3 Fatty Acids (FISH OIL) 1000 MG capsule Take 3,000 mg by mouth 2 times daily Active Multiple Vitamin (MULTI VITAMIN DAILY) TABS Take 1 Tab by mouth once daily Active Active Problems Problem Noted Date Diagnosed Date Postoperative wound infection 09/17/2015 Lumbar stenosis 08/22/2015 Status post lumbar spinal fusion 08/22/2015 Mixed hyperlipidemia 08/22/2015 Essential hypertension 08/22/2015 Smoker Smoker Overview (09/17/2015): <1pk day, 40 years Family History Relation Name Status Comments Other Social History Tobacco Use Types Packs/Day Years Used Date Smoking Tobacco: Every Day Cigarettes 0.5 40 Smokeless Tobacco: Never Tobacco Cessation:Ready to Q uit: No; Counseling Given: Yes Alcohol Use Standard Drinks/Week Comments Yes 1 (1 standard drink = 0.6 oz pur e alcohol) 1 beer a week Sex and Gender Information Value Date Recorded Sex Assigned at Not on file 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 Gender Identity Not on file Sexual Orientation Not on file Last Filed Vital Signs Vital Sign Reading Time Taken Comments Blood Pressure 136/82 07/19/2016 4:26 PM CDT Pulse 86 07/19/2016 4:26 PM CDT Temperature 36.7 C (98 F) 07/19/2016 4:26 PM CDT Respiratory Rate 18 07/19/2016 4:26 PM CDT Oxygen Saturation 97% 07/19/2016 4:26 PM CDT Inhaled Oxygen Concentration - - Weight 122.5 kg (270 lb) 07/19/2016 4:26 PM CDT Height 185.4 cm (6' 1) 07/19/2016 4:26 PM CDT Body Mass Index 35.62 07/19/2016 4:26 PM CDT Plan of Treatment Health Maintenance Due Date Last Done Comments COLOGUARD (AGES 45-75) - COL ON CA SCREENING 1957 COLON MONITORING 1957 COLONOSCOPY - COLON CA SCREENING 1957 CT COLONOGRAPHY - COLON CA SCREENING 1957 Colorectal Cancer Screening 1957 FIT - COLON CA SCREENING 1957 FLEX SIG - COLON CA SCREENING 1957 HEPATITIS C SCREENING 09/08/1975 DTAP/TDAP/TD VACCINES (1 - Tdap) 1976 PNEUMOCOCCAL VACCINE 50+ (1 of 2 - PCV) 1976 ZOSTER VACCINE (1 of 2) 09/13/2007 AAA SCREENING 2022 COVID-19 VACCINE (1 - 2023-2 5 season) 2023 DEPRESSION SCREENING 03/03/2024 INFLUENZA VACCINE (#1) 2024 Respiratory Syncytial Virus (RSV) Vaccine Pt: or over 60 yrs (1 - 1-dose 75+ series) 2032 HEPATITIS B VACCINE Aged Out No longe r eligible based on patient's age to complete this topic HIB VACCINE Aged Out No longer eligi ble based on patient's age to complete this topic HPV VACCINE Aged Out No longer eligi ble based on patient's age to complete this topic MENINGOCOCCAL (Group B) VACC INE SHARED DECISION-MAKING Aged Out No longer eligibl e based on patient's age to complete this topic MENINGOCOCCAL GROUPS A/C/Y/W VACCINE Aged Out No longer eligible b ased on patient's age to complete this topic Medical Devices Implanted Type Area Caddie Supervisor Device Identifier Shelf Expiration Date Model / Serial / Lot Floseal 10ml Implanted:Qty : 1 on 08/21/2015 by Warren Contreras MD at [facility] N/A: Spine Thoracic Double-[employer] [place] 01/30/2018 [id number] / / [id number] Scrw 6.5mm X 50mm Implanted:Qty : 2 on 08/21/2015 by Warren Contreras MD at [facility] N/A: Spine Thoracic Orth[employer]ix Inc [id number] / / Implt Bod Scr Top Load Implanted:Qty : 20 on 08/21/2015 by Warren Contreras MD at [facility] N/A: Spine Thoracic Orth[employer]ix Inc [id number] / / Scrw St Implanted:Qty : 20 on 08/21/2015 by Warren Contreras MD at [facility] N/A: Spine Thoracic Orth[employer] Inc [id number] / / 450mm T. Rods Implanted:Qty : 2 on 08/21/2015 by Warren Contreras MD at [facility] N/A: Spine Thoracic [employer] Inc [id number] / / Implt Pillar 9.0 X 27mm X 12mm Implanted:Qty : 1 on 08/21/2015 by Warren Contreras MD at [facility] N/A: Spine Thoracic [employer] Inc [id number] / / Implt Pillar 9.0 X 27mm X 8.0mm Implanted:Qty : 1 on 08/21/2015 by Warren Contreras MD at [facility] N/A: Spine Thoracic [employer] Inc [id number] / / Jamin To Jamin Connector Implanted:Qty : 4 on 08/21/2015 by Warren Contreras MD at [facility] N/A: Spine Thoracic [employer] [id number] / / 35mm Cross Connector Implanted:Qty : 1 on 08/21/2015 by Warren Contreras MD at [facility] N/A: Spine Thoracic [employer] [id number] / / Conn Mult Axial 40mm Implanted:Qty : 1 on 08/21/2015 by Warren Contreras MD at [facility] N/A: Spine Thoracic Orth[employer] [id number] / / Bone Crush Canc 30cc Implanted:Qty : 1 on 08/21/2015 by Warren Contreras MD at [facility] N/A: Spine Thoracic Allosource 02/08/2020 [id number] / / [id number] 9mm Si Serrated Fusion Dowel Implanted:Qty : 1 on 08/21/2015 by Warren Contreras MD at [facility] N/A: Spine Thoracic [employer] 08/04/2016 [id number] / / [id number] Bone Crush Canc 30cc Implanted:Qty : 1 on 08/21/2015 by Warren Contreras MD at [facility] N/A: Spine Thoracic [employer]osource 02/12/2020 [id number] / / [id number] Grft Duragen Plus 2 X 2 Implanted:Qty : 1 on 08/21/2015 by Warren Contreras MD at [facility] N/A: Spine Thoracic Integra [employer]iences 10/31/2017 [id number] / / [id number] Bone Crush Canc 30cc Implanted:Qty : 1 on 08/21/2015 by Warren Contreras MD at [facility] N/A: Spine Thoracic Allosource 03/11/2020 [id number] / / [id number] 9mm Si Serrated Fusion Dowel Implanted:Qty : 1 on 08/21/2015 by Warren Contreras MD at [facility] N/A: Spine Thoracic [employer] 08/04/2016 [id number] / / [id number] 9mm Serrated Fusion Dowel Implanted:Qty : 1 on 08/21/2015 by Warren Contreras MD at [facility] N/A: Spine Thoracic [employer] 07/13/2016 [id number] / / [id number] 9mm Si Serrated Fusion Dowel Implanted:Qty : 1 on 08/21/2015 by Warren Contreras MD at [facility] N/A: Spine Thoracic [employer] 07/23/2016 [id number] / / [id number] 8.5x80mm Iliac Screw Implanted:Qty : 2 on 08/21/2015 by Warren Contreras MD at [facility] N/A: Spine Thoracic Orth[employer] Inc [id number] / / Scrw 7.5mm X 45mm Implanted:Qty : 3 on 08/21/2015 by Warren Contreras MD at [facility] N/A: Spine Thoracic Orth[employer] Inc [id number] / / Scrw 7.5mm X 50mm Implanted:Qty : 11 on 08/21/2015 by Warren Cotnreras MD at [facility] N/A: Spine Thoracic Orth[employer]ix Inc 44-3651 / / Scrw Firebird 7.5mm X 55mm Implanted:Qty : 2 on 08/21/2015 by Warren Contreras MD at [facility] N/A: Spine Thoracic Orth[employer]ix Inc [id number] / / Additional Health Concerns Infection Onset Date Last Indicated MRSA Comment:09/17/15 WOUND; CLINDA SENS; POA 09/19/2015 09/19/2015 Insurance [facility] MANAGED MEDICARE ADV [facility] MANAGED MEDICARE ADV Advance Directives * Full Code (Latest Code Status on File) Date Activated Date Inactivated Comments 09/17/2015 3:50 PM 09/18/2015 6:44 PM * Full Code Date Activated Date Inactivated Comments 08/21/2015 9:54 PM 08/26/2015 12:50 PM Care Teams Salon/Spa Manager Relationship Specialty Start Date End Date Shivani Wyatt MD [facility] [place] [address] PCP - General Family Medicine 03/24/15
--- OUTSIDE RECORDS SUMMARY | 2024-10-26 16:15 | XMS_ITS | Encounter Summary ---
Author Organization [employer] [facility] Address 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
--- OUTSIDE RECORDS SUMMARY | 2024-10-26 16:15 | XMS_ITS | Encounter Summary ---
Author Organization [employer] [facility] Address 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
--- OUTSIDE RECORDS SUMMARY | 2024-10-26 16:15 | XMS_ITS | Encounter Summary ---
Author Organization [employer] [facility] Address 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
--- OUTSIDE RECORDS SUMMARY | 2024-10-26 16:15 | XMS_ITS | Encounter Summary ---
Author Organization [employer] [facility] Address 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
--- OUTSIDE RECORDS SUMMARY | 2024-10-26 16:15 | XMS_ITS | Encounter Summary ---
Author Organization [employer] [facility] Address 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
--- OUTSIDE RECORDS SUMMARY | 2024-10-26 16:15 | XMS_ITS | Encounter Summary ---
Author Organization [employer] [facility] Address [address] [place] [address] Care Team Providers Care Rater Associate Name Role Phone Unavailable Primary Care Provider Unavailabl e Encounter Details Date Type Department Care Team (Latest Contact Info) Description 09/01/2000 Outpatient Historical HIS CHRONIC PAIN Amirah Rivers MD NO ADDRESS ON FILE Lumbago (Primary Dx) Social History Tobacco Use Types Packs/Day Years Used Date Smoking Tobacco: Never Assessed Sex and Gender Information Value Date Recorded Sex Assigned at Not on file Legal Sex Male 4:[address] Gender Identity Not on file Sexual Orientation Not on file documented as of this encounter Plan of Treatment Not on file documented as of this encounter Visit Diagnoses Diagnosis Lumbago- Primary documented in this encounter
--- OUTSIDE RECORDS SUMMARY | 2024-10-26 16:15 | XMS_ITS | Encounter Summary ---
Author Organization [employer] Address 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
--- OUTSIDE RECORDS SUMMARY | 2024-10-26 16:15 | XMS_ITS | Encounter Summary ---
Author Organization [employer] [facility] Address 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
--- OUTSIDE RECORDS SUMMARY | 2024-10-26 16:15 | XMS_ITS | Encounter Summary ---
Author Organization [facility] Address 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
--- OUTSIDE RECORDS SUMMARY | 2024-10-26 16:15 | XMS_ITS | Encounter Summary ---
Author Organization [employer] [facility] Address 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
== END 2024-10-26 16:11 | disposition home or self-care (01) ==
PROVIDERS: PCP Internal Medicine; Visit Provider Internal Medicine
DX: I65.29 Occlusion and stenosis of unspecified carotid artery (principal)
CPT/HCPCS: 93880